=== PATIENT | male | born 1975 | race Caucasian/White ===

== ENCOUNTER 2017-01-11 11:21 | Emergency (ER) | payer OTHER ==
[~2017-01-11] VITALS: Ht 182.9 cm; Wt 86.2 kg
[2017-01-11 11:21] VITALS: BP 108/63; PULSE 64; RESP 19; TEMP 97.2; O2SAT 99
--- NOTE | 2017-01-11 11:21 | NUR ---
BROUGHT IN BY CORINNA MORENO, PLACED IN HALLWAY BED AND TRIAGED. REPORT GIVEN TO ANIL
--- NOTE | 2017-01-11 11:25 | NUR ---
Pt brought by self, A&Ox4, pt c/o lower back pain 07/27 since today after beding at work, skin pink and warm, cap refill <3, VSS, family at bedside.
--- NOTE | 2017-01-11 11:25 | NUR ---
Dr Morales at bedside examining patient
[2017-01-11] MEDS ORDERED: MORPHINE 4 MG/ML INJ. SYRINGE IVP ONE (12:30)
[2017-01-11 12:34] LABS: BASOPHILS # (AUTO) 0.1 K/uL (0.0-0.2); BASOPHILS % (AUTO) 1.1 % (0.0-2.0); EOSINOPHILS # (AUTO) 0.3 K/uL (0.0-0.4); EOSINOPHILS % (AUTO) 5.6 % (0.0-4.0); HEMATOCRIT 42.6 % (36-54); HEMOGLOBIN 14.2 g/dL (14.0-18.0); LYMPHOCYTES # (AUTO) 1.4 K/uL (1.0-5.5); LYMPHOCYTES % (AUTO) 24.5 % (20.5-51.5); MEAN CORPUSCULAR HEMOGLOBIN 31 pg (27-31); MEAN CORPUSCULAR HGB CONC 33 % (32-36); MEAN CORPUSCULAR VOLUME 91 fL (79.0-98.0); MONOCYTES # (AUTO) 0.3 K/uL (0.0-1.0); NEUTROPHILS # (AUTO) 3.5 K/uL (1.8-7.7); NEUTROPHILS % (AUTO) 62.8 % (40.0-70.0); PLATELET COUNT (AUTO) 183 K/uL (130-430); RED BLOOD CELL COUNT(AUTO) 4.66 MIL/uL (4.2-6.2); RED CELL DISTRIBUTION WIDTH 12.1 % (9.0-15.0); WHITE BLOOD COUNT (AUTO) 5.6 K/uL (4.8-10.8)
[2017-01-11 12:45] LABS: CALCIUM 9.2 mg/dL (8.4-11.0); CHLORIDE 104 mmol/L (98-107); CREATININE 0.87 mg/dL (0.55-1.30); GLUCOSE 97 mg/dL (70-99); POTASSIUM 4.5 mmol/L (3.5-5.1); SODIUM SERUM 139 mmol/L (136-145); UREA NITROGEN, BLOOD 19 mg/dL (8-21)
[2017-01-11] MEDS ORDERED: ONDANSETRON HCL 4 MG/2 ML VIAL IVP ONE (12:45)
[2017-01-11 12:46] LABS: ANION GAP < 3 (5-15); GFR AFRICAN AMERICAN 124 mL/min (>90)
[2017-01-11 12:50] LABS: ALANINE AMINOTRANSFERASE 34 U/L (12-78); ALBUMIN 4.1 g/dL (3.4-4.8); ASPARTATE AMINOTRANSFERASE 20 U/L (10-37); TOTAL BILIRUBIN 0.6 mg/dL (0.0-1.0); TOTAL PROTEIN, SERUM 6.9 g/dL (6.4-8.3)
[2017-01-11 12:52] LABS: BILIRUBIN,URINE NEGATIVE (NEGATIVE); BLOOD, URINE NEGATIVE (NEGATIVE); CLARITY/URINE CLEAR (CLEAR); COLOR,URINE YELLOW (YELLOW); GLUCOSE,URINE NEGATIVE (NEGATIVE); KETONES,URINE NEGATIVE (NEGATIVE); LEUKOCYTE ESTERASE ,URINE NEGATIVE (NEGATIVE); NITRITE, URINE NEGATIVE (NEGATIVE); PROTEIN URINE NEGATIVE (NEGATIVE); UROBILINOGEN,URINE 0.2 (0.2-1.0)
--- NOTE | 2017-01-11 13:30 | NUR ---
Pt on stable condition, A&Ox4, VSS, pt ambulatory
[2017-01-11] MEDS ORDERED: HYDROmorphone 1 MG INJ. 1 MG/ML AMPUL IVP ONE ×2 (14:45→15:45)
[2017-01-11] MEDS ORDERED: HYDROmorphone 1 MG INJ. 1 MG/ML AMPUL IM ONE (15:45)
[2017-01-11 17:28] VITALS: BP 108/63; PULSE 64; RESP 19; TEMP 97.2; O2SAT 99
--- NOTE | 2017-01-11 17:30 | NUR ---
Patient given written and verbal discharge instructions and verbalizes understanding. ER MD discussed with patient the results and treatment provided.. Patient in stable condition. ID arm band removed. IV catheter removed intact and dressing applied, no active bleeding. Rx of Flexeril and Hydrocodone given. Patient educated on pain management and to follow up with PMD. Pain Scale 3/10 tolerable for pt . Opportunity for questions provided and answered.
== END 2017-01-11 17:28 | disposition home or self-care (01) ==
LOC: SED 11:21
DX: G89.29 Other chronic pain (principal); M54.5 Low back pain
CPT/HCPCS: 36415; 72110; 80053; 81003; 85025; 96374; 96375; 99285; J1170; J2270; J2405